=== PATIENT | female | born 1940 ===

== ENCOUNTER 2020-12-17 09:35 | Outpatient (CLI) | payer OTHER ==
[~2020-12-17 09:35] MED LIST: DERMOTIC20 ML OTIC; OMEPRAZOLE40 MG PO; ZANTAC300 MG PO
== END 2020-12-17 09:43 | disposition home or self-care (01) ==
LOC: RX STUDY 09:35
PROVIDERS: ATTEND Specialist
DX: R13.19 Other dysphagia (principal)

== ENCOUNTER 2022-04-09 13:34 | Outpatient (CLI) | payer OTHER | END 2022-04-09 13:39 | disposition home or self-care (01) | LOC: RAD 13:34 | PROVIDERS: ATTEND Physical Medicine & Rehabilitation | DX: M25.512 Pain in left shoulder (principal) ==